=== PATIENT | male | born 1975 | race Hispanic/Latino ===

== ENCOUNTER 2023-06-25 12:07 | Emergency (ER) | payer SELFPAY ==
[2023-06-25 12:17] VITALS: BP 114/78
--- NOTE | 2023-06-25 13:09 | ED.GENMED ---
History of Present Illness
General
Chief Complaint: Eye Problems
Source: patient
Time Seen by Provider: 06/25/23 13:02
Travel History
Have you had any contact with someone who has COVID-19?: No
Do you have any symptoms of coronavirus? Fever > 100 degrees, chills, cough, shortness of breath, sore throat, loss of taste or smell, muscle aches, or headache?: No
History of Present Illness
History of Present Illness:
47-year-old male with no significant past medical history presenting to the emergency department for evaluation of right upper eyelid swelling and erythema that began on Sunday, noticed increased discomfort today prompting him to come to the ER.
He states he did apply a cool compress to the area yesterday but did not have any relief. Denies any drainage from the affected area, no visual changes, does not use glasses or contact lenses. Denies any history of similar.
Past History
Past History
ED Past Medical History: None
ED Past Surgical History: None
Social History
Tobacco: Non-smoker
Alcohol: None
Drug: None
Personal:
Living: with family
Review of Systems
Review of Systems
All Other Systems: ROS reviewed and negative except as documented in HPI and ROS
Phy Exam
Physical Exam
Physical Exam:
GENERAL: Alert , in no apparent distress
EYE: conjunctiva clear, internal stye to the right upper eyelid with surrounding erythema and edema. There is no periorbital erythema or edema. Extraocular movements are intact and without pain. No discharge
Head: Normocephalic atraumatic
NECK: Supple,
ENT: mmm.
LUNGS: no acute respiratory distress
NEUROLOGICAL: Alert and oriented
SKIN: Warm and dry, skin intact.
MUSCULOSKELETAL: well perfused.
PSYCH: Normal and appropriate interaction.
Scores
Heart Failure Risk
Heart Failure Risk Score: Not Applicable
Heart Score for Chest Pain Patients
STEMI patient?: Not applicable
Withdrawal Assessment of Alcohol
Withdrawal Assessment Completed?: Not applicable
Course
Vital Signs
Initial and Last Documented VS:
Initial Vital Signs
Temp Pulse Resp BP Pulse Ox
98.4 F 61 16 114/78 98
06/25/23 12:17 06/25/23 12:17 06/25/23 12:17 06/25/23 12:17 06/25/23 12:17
Last Documented Vital Signs
Temp Pulse Resp BP Pulse Ox
98.4 F 61 16 114/78 98
06/25/23 12:17 06/25/23 12:17 06/25/23 12:17 06/25/23 12:17 06/25/23 12:17
MDM/Problems Addressed
Differential Diagnosis Includes:
Stye, Chalazion, conjunctivitis, no concern for foreign body or corneal abrasion
MDM/Problems Addressed:
47-year-old male presenting the emergency department for evaluation of right upper eyelid swelling and erythema for 2 days. Exam seems to be most consistent with a internal right upper lid stye. Discussed with patient treatment for this including
warm compresses. Patient would like an antibiotic despite education stating antibiotics have not been shown to be helpful in treatment of styes. Provided him with information for ophthalmology but if symptoms or not to improve he can follow-up as
he may require procedure to remove stye. Stable for discharge home.
*Pulse Oximetry
Patient hypoxic: no
*Critical Care Note
Total Time (30-74mins, 75-104mins- exclusive of procedures): Not Applicable
ED Attending Note
-
Portions of this chart may have been created with voice recognition software.� Occasional wrong word or��sound alike� substitutions may have occurred due to the inherent limitations of voice recognition software.
Discharge Plan
Departure
Patient Disposition: Home (Routine Discharge)
Date of Disposition: 06/25/23
Time of Disposition: 13:09
Patient with high blood pressure during this ER visit?: No
Discharge Problem:
Hordeolum internum of right upper eyelid
Instructions: Douglas (DC)
Prescriptions:
New
erythromycin 5 mg/gram (0.5 %) ointment
0.5 inch ophthalmic (eye) BID Qty: 3.5 0RF
Referrals:
Vick Hernandez MD [Active] - (Ophthalmology)
Interventions
Interventions:
*ED COVID-19 Vaccine History Last Done: 06/25/23 12:17
Discharge Date and Time
Print Language: ECUADOREAN
== END 2023-06-25 13:34 | disposition home or self-care (01) ==
LOC: EMR 12:07
PROVIDERS: EMERGENCY PHYSICIAN Emergency Medicine
DX: H00.021 Hordeolum internum right upper eyelid (principal)
CPT/HCPCS: 99283

== ENCOUNTER 2023-07-14 15:33 | Emergency (ER) | payer SELFPAY ==
[2023-07-14 15:38] VITALS: BP 120/76
--- NOTE | 2023-07-14 17:20 | ED.GENMED ---
History of Present Illness
<JARED Benitez - Last Filed: 07/15/23 00:06>
General
Chief Complaint: Abdominal Symptoms
Source: patient
Exam Limitations: none
Time Seen by Provider: 07/14/23 17:08
Nursing documentation reviewed up to this point in time: agreed with
Travel History
Have you had any contact with someone who has COVID-19?: No
Do you have any symptoms of coronavirus? Fever > 100 degrees, chills, cough, shortness of breath, sore throat, loss of taste or smell, muscle aches, or headache?: No
History of Present Illness
History of Present Illness:
This is a 48 year old male with no significant PMHx who presents to the ER for abdominal pain and NVD x1 day. Patient reports last night around 9pm he had an sudden onset of watery diarrhea followed shortly by headache and chills and an episode of
vomiting. He gradually developed RUQ abdominal pain a few hours after his initial symptoms. He reports abdominal pain radiates to the epigastric region. He describes the abdominal pain as intermittent dull and crampy. His pain is relieved after
vomiting. He reports having 5-6 episodes of diarrhea and 3-4 episodes of bilious vomiting. He denies fever, CP, SOB, blood in his stool or emesis, or worse headache of his life. He admits eating turkey and eggplant last night around 4:00pm, which is
not a typical dinner for him. He reports his symptoms are now resolved. He denies regular use of NSAIDs or recent antibiotics use. He was born in [place] and has never been tested for H. Pylori. Denies any recent travel. Denies any abdominal
surgeries. He denies smoking tobacco, drinking alcohol, or any illicit drugs.
Past History
<JARED Benitez - Last Filed: 07/15/23 00:06>
Past History
ED Past Medical History: None
ED Past Surgical History: None
Social History
Tobacco: Non-smoker
Alcohol: None
Drug: None
Personal:
Living: with family
Review of Systems
<JARED Benitez - Last Filed: 07/15/23 00:06>
Review of Systems
Allergies reviewed?: Yes
All Other Systems: Not applicable
Constitutional: Reports chills
EENT: Reports no symptoms
Respiratory: Reports no symptoms
Cardiac: Reports no symptoms
ABD/GI: Reports abdominal pain, nausea, vomiting and diarrhea
: Reports no symptoms
Musculoskeletal: Reports no symptoms
Skin: Reports no symptoms
Neurological: Reports headache
Endocrine: Reports no symptoms
Hematologic/Lymphatic: Reports no symptoms
Psychiatric: Reports no symptoms
Phy Exam
<JARED Benitez - Last Filed: 07/15/23 00:06>
General Physical Exam
General Presentation: well appearing and no apparent distress
General Skin: warm and dry
General Habitus: normal
General Mental: alert
General Hydration: appears well hydrated
ENT Exam
ENT Exam: EOMI, pharynx normal, neck supple and normocephalic
Eye Exam
Eye Exam: PERRL, cornea clear and conjunctiva normal
Cardiovascular Exam
Cardiovascular Exam: regular rate/rhythm, no edema, no murmur and normal peripheral pulses
Pulmonary Exam
Pulmonary Exam: lungs clear, no respiratory distress, no rales, no crackles, no rhonchi, no stridor, no wheezing and no cough
Gastrointestinal Exam
Gastrointestinal Exam: normal bowel sounds, non tender, soft, no organomegaly, no pulsatile mass and non distended
Neurological Exam
Neurological Exam: alert, oriented x3, no motor deficits and speech normal
Musculoskeletal Exam
Musculoskeletal Exam: full ROM and no edema
Skin Exam
Skin Exam: normal color, warm/dry, no rash and no petechia
Psychiatric Exam
Psychiatric Exam: normal mood/affect
Course
<JARED Benitez - Last Filed: 07/15/23 00:06>
Orders/Labs/Results
Orders:
Orders
07/14/23 18:18
Complete Blood Count/With Diff Urgent
Comprehensive Metabolic Panel Urgent
Lipase Urgent
PTT Urgent
Prothrombin Time Urgent
Urinalysis Reflex To Culture Urgent
Date Specimen was Collected: 07/14/23
Time Specimen was Collected: 18:16
Urine Microscopic Reflex Cult Urgent
07/14/23 19:57
0.9% Sodium Chloride 1000 ml [Nss] 1,000 ml IV BOLUS
Ondansetron Injectable [Zofran] 4 mg IV NOW STA
07/14/23 19:58
US Abdomen Complete/Upper Urgent
Comment:
Reason For Exam: upper abd pain, nausea and vomiting
Abnormal Lab Results
07/14/23
18:18
Absolute Neuts (auto) 7.2 H 10^3/uL
(1.4-6.5)
Absolute Lymphs (auto) 0.5 L 10^3/uL
(1.2-3.4)
Absolute Monos (auto) 0.7 H 10^3/uL
(0.1-0.6)
Neutrophils % 86.0 H %
(42.2-75.2)
Lymphocytes % 5.3 L %
(20.5-51.1)
Sodium 133 L mmol/L
(135-145)
Carbon Dioxide 20 L mmol/L
(22-30)
Glucose 111 H mg/dl
(70-99)
Lipase 362 H U/L
(23-300)
Urine Ketones Trace A
(Negative)
Ur Occult Blood Reflex 1+ A
(Negative)
07/14/23 18:18
07/14/23 18:18
Vital Signs
Initial and Last Documented VS:
Initial Vital Signs
Temp Pulse Resp BP Pulse Ox
98.8 F 83 20 120/76 97
07/14/23 15:38 07/14/23 15:38 07/14/23 15:38 07/14/23 15:38 07/14/23 15:38
Last Documented Vital Signs
Temp Pulse Resp BP Pulse Ox
98.8 F 80 16 97/60 95
07/14/23 15:38 07/14/23 22:39 07/14/23 22:39 07/14/23 22:35 07/14/23 22:35
<Pedro Crespo, DO - Last Filed: 07/15/23 00:05>
Orders/Labs/Results
Orders:
Orders
07/14/23 18:18
Complete Blood Count/With Diff Urgent
Comprehensive Metabolic Panel Urgent
Lipase Urgent
PTT Urgent
Prothrombin Time Urgent
Urinalysis Reflex To Culture Urgent
Date Specimen was Collected: 07/14/23
Time Specimen was Collected: 18:16
Urine Microscopic Reflex Cult Urgent
07/14/23 19:57
0.9% Sodium Chloride 1000 ml [Nss] 1,000 ml IV BOLUS
Ondansetron Injectable [Zofran] 4 mg IV NOW STA
07/14/23 19:58
US Abdomen Complete/Upper Urgent
Comment:
Reason For Exam: upper abd pain, nausea and vomiting
Abnormal Lab Results
07/14/23
18:18
Absolute Neuts (auto) 7.2 H 10^3/uL
(1.4-6.5)
Absolute Lymphs (auto) 0.5 L 10^3/uL
(1.2-3.4)
Absolute Monos (auto) 0.7 H 10^3/uL
(0.1-0.6)
Neutrophils % 86.0 H %
(42.2-75.2)
Lymphocytes % 5.3 L %
(20.5-51.1)
Sodium 133 L mmol/L
(135-145)
Carbon Dioxide 20 L mmol/L
(22-30)
Glucose 111 H mg/dl
(70-99)
Lipase 362 H U/L
(23-300)
Urine Ketones Trace A
(Negative)
Ur Occult Blood Reflex 1+ A
(Negative)
07/14/23 18:18
07/14/23 18:18
Vital Signs
Initial and Last Documented VS:
Initial Vital Signs
Temp Pulse Resp BP Pulse Ox
98.8 F 83 20 120/76 97
07/14/23 15:38 07/14/23 15:38 07/14/23 15:38 07/14/23 15:38 07/14/23 15:38
Last Documented Vital Signs
Temp Pulse Resp BP Pulse Ox
98.8 F 80 16 97/60 95
07/14/23 15:38 07/14/23 22:39 07/14/23 22:39 07/14/23 22:35 07/14/23 22:35
<JARED Benitez - Last Filed: 07/15/23 00:06>
MDM/Problems Addressed
Differential Diagnosis Includes:
Gastroenteritis, Gastritis, Peptic ulcer disease, Pancreatitis, Cholecystitis, Appendicitis.
Cholecystitis and appendicitis considered d/t righted sided abd pain radiating to the epigastric. However, patient does not have a fever. He also denies a history of gallstones and drinking alcohol making cholecystitis less likely. Peptic ulcer
disease considered with patient's history of being born in [place]. However less likely due to additional symptoms of diarrhea, headaches and chills. Pancreatitis considered due to elevated lipase. Gastroenteritis and gastritis considered due to
patient presentation and related symptoms that have now resolved after episodes of diarrhea and vomiting.
<JARED Benitez - Last Filed: 07/15/23 00:06>
*Critical Care Note
Total Time (30-74mins, 75-104mins- exclusive of procedures): Not Applicable
<Pedro Crespo DO - Last Filed: 07/15/23 00:05>
Update Note
Update Note:
ABDOMINAL US
IMPRESSION:
A few likely gallbladder polyps noted. Stones nor no gallbladder wall thickening. Negative sonographic Weaver sign.
Pancreas not well evaluated. Liver, spleen, and kidneys are within normal limits.
07/15/2023 0001 AM: Patient states that he is feeling much better. He has no abdominal pain at this time. He wishes to be discharged home.
ED Attending Note
<JARED Benitez - Last Filed: 07/15/23 00:06>
-
Portions of this chart may have been created with voice recognition software.� Occasional wrong word or��sound alike� substitutions may have occurred due to the inherent limitations of voice recognition software.
<Pedro Crespo DO - Last Filed: 07/15/23 00:05>
ED Attending Note
Patient seen and examined by attending physician: Yes
I performed the substantive portion of visit, reviewed & personally made and approve the management plan that is documented in note by myself or LETTY.: Yes
ED Attending Note:
Pleasant 48-year-old male presents with upper abdominal pain with nausea, vomiting, and nonbloody diarrhea. Patient states that the symptoms began last night. He also reported headache and chills. patient states that his abdominal pain is
alleviated with vomiting. Patient reports having 5-6 episodes of diarrhea 3-4 episodes of bilious vomiting in the last 24 hours. Denies chest pain or shortness of breath. Denies previous abdominal surgeries. Denies alcohol use. Reports no other
symptoms. Patient was seen in conjunction with the PA student. I have reviewed and agree with the history and treatment plan presented. On my independent physical exam, patient is awake, alert, and oriented x3, minimal acute distress. Abdomen is
soft and nontender. No hepatosplenomegaly. Good bowel sounds heard.
Discharge Plan
Departure
Patient Disposition: Home (Routine Discharge)
Date of Disposition: 07/15/23
Time of Disposition: 00:02
Patient with high blood pressure during this ER visit?: No
Condition: Good
Discharge Problem:
Nausea vomiting and diarrhea
Instructions: Diarrhea in adolescents and adults, Nausea and Vomiting, Adult (DC)
Prescriptions:
New
ondansetron HCl 4 mg tablet
4 mg PO TID PRN (Reason: nausea and vomiting) Qty: 10 0RF
No Action
erythromycin 5 mg/gram (0.5 %) ointment
0.5 inch ophthalmic (eye) BID Qty: 3.5 0RF
Referrals:
[facility] [Outside]
[facility] [Outside]
Regino Rader MD [Family Provider] -
Activity Restrictions/Additional Instructions:
It was a pleasure meeting you and taking part in your care. We hope for your continued healing and wellness.
Please read discharge instructions in their entirety. However, they are for general education and may not describe your exact diagnosis at discharge. Information on your ER visit and medical conditions were discussed with you along with appropriate
follow up information...
If indicated, please take your medications as instructed and indicated on discharge paperwork.
Please schedule a follow up appointment as directed. Call to schedule an appointment
Please return to the emergency department with ANY change in, persisting, or worsening of symptoms. If any of your symptoms do not improve, or persist, or become more severe within 6-12 hours, please return to the emergency department for further
care.
Please return to the emergency department if you develop a headache, neck pain/stiffness, fever greater than 100.4F, chest pain, shortness of breath, persistent nausea, vomiting, slurred speech, difficulty walking, numbness/tingling, weakness, signs
of infection or any other symptoms that are worrisome to you.
If you have any questions or concerns please do not hesitate to call the Hospital at or E-mail me directly at [email or web address]
Interventions
Interventions:
*Risk Screen - Suicide Last Done: 07/14/23 18:21
*General Assessment Last Done: 07/14/23 18:21
*Neglect/Abuse Screening Last Done: 07/14/23 18:21
*ED COVID-19 Vaccine History Last Done: 07/14/23 18:21
[id number] Assessment Last Done: 07/14/23 18:17
Discharge Date and Time
Print Language: SAMI
[2023-07-14 18:28] LABS: % Basophils 0.2 % (0-2); % Eosinophils 0.1 % (0-6); % Immature Granulocytes 0.5 % (0-0.5); % Lymphocytes 5.3 % (20.5-51.1); % Monocytes 7.9 % (1.7-9.3); Absolute Lymphocytes 0.5 10^3/uL (1.2-3.4); Absolute Monocytes 0.7 10^3/uL (0.1-0.6); Absolute Neutrophils 7.2 10^3/uL (1.4-6.5); Hematocrit 46.6 % (39.0-52.0); Hemoglobin 16.5 g/dL (13.0-18.0); Mean Corp Hgb Conc. 35.4 g/dL (33.0-37.0); Mean Corpuscular Hgb 30.7 pg (27.0-31.0); Mean Corpuscular Volume 86.6 fL (80.0-94.0); Mean Platelet Volume 9.1 fL (7.4-10.4); Nucleated Red Blood Cells % 0 % (-); Platelet Count 260 10^3/uL (130-400); Red Blood Cell Count 5.38 10^6/uL (4.70-6.10); Red Cell Dist. Width 13.4 % (11.5-14.5); White Blood Cell Count 8.4 10^3/uL (4.8-10.8)
[2023-07-14 18:37] LABS: APTT 29.2 Sec (23.4-35.0); INR 1.04; PT 13.4 Sec (11.4-14.6)
[2023-07-14 18:47] LABS: ALT (SGPT) 48 U/L (0-50); AST (SGOT) 33 U/L (17-59); Albumin 4.6 g/dl (3.5-5.0); Alkaline Phosphatase 94 U/L (38-126); Blood Urea Nitrogen 18 mg/dl (9-20); Calcium 9.1 mg/dl (8.4-10.2); Carbon Dioxide 20 mmol/L (22-30); Chloride 105 mmol/L (98-107); Glucose 111 mg/dl (70-99); Lipase 362 U/L (23-300); Potassium 4.2 mmol/L (3.5-5.1); Sodium 133 mmol/L (135-145); Total Bilirubin 0.6 mg/dl (0.2-1.3); Total Protein 7.5 g/dl (6.3-8.2); eGFR > 60.00
[2023-07-14 18:54] LABS: Urine Albumin Trace (Neg - Trace); Urine Bilirubin Negative (Negative); Urine Character Clear (Clear); Urine Color Yellow; Urine Glucose Negative (Negative); Urine Ketone Trace (Negative); Urine Leukocyte Negative (Negative); Urine Nitrite Negative (Negative); Urine Occult Blood 1+ (Negative); Urine Specific Gravity 1.025 (<1.030); Urine Urobilinogen Negative (Neg - 1+)
[2023-07-14 19:09] LABS: Urine Red Blood Cell 0-2 /HPF (0-2); Urine White Cell 0-2 /HPF (0-5)
[2023-07-14] MEDS: ZOFRAN 4 MG IV (20:08)
[2023-07-14] MEDS: NSS 1000 IV (20:08)
[2023-07-14 22:35] VITALS: BP 97/60
[2023-07-14 23:00] VITALS: BP 101/67
[2023-07-15] VITALS: BP 111/72
== END 2023-07-15 00:34 | disposition home or self-care (01) ==
LOC: EMR 15:33
PROVIDERS: EMERGENCY PHYSICIAN Student in an Organized Health Care Education/Training Program; FAMILY PHYSICIAN Pediatrics
DX: R11.2 Nausea with vomiting, unspecified (principal); R19.7 Diarrhea, unspecified; R10.10 Upper abdominal pain, unspecified; R51.9 Headache, unspecified; K82.4 Cholesterolosis of gallbladder
CPT/HCPCS: 99284; 96374; 96361; 76700; 80053; 81003; 81015; 83690; 85025; 85610; 85730

== ENCOUNTER → 2023-08-23 14:24 | Outpatient (REF) | payer OTHER, SELFPAY ==
[2023-08-23 16:14] LABS: HDL Cholesterol 60 mg/dl; LDL Cholesterol, Calculated 137 mg/dl; Total Cholesterol 222 mg/dl (50-199); Triglyceride 129 mg/dl (10-149); Very Low Density Lipoprotein 25 mg/dl (0-30)
[2023-08-23 16:32] LABS: Amylase 99 U/L (30-110); Lipase 122 U/L (23-300)
[2023-08-23 16:45] LABS: PSA, Total - Screen 1.27 ng/ml (0.0-4.0)
[2023-08-24 09:11] LABS: Glycohemoglobin (HgbA1c) 5.9 % (4.0-5.6)
== END ==
LOC: CLINIC 14:24
PROVIDERS: ATTENDING PHYSICIAN Internal Medicine
DX: K85.01 Idiopathic acute pancreatitis with uninfected necrosis (principal); Z13.1 Encounter for screening for diabetes mellitus; Z12.5 Encounter for screening for malignant neoplasm of prostate; Z12.11 Encounter for screening for malignant neoplasm of colon
CPT/HCPCS: 36415; 80061; 82150; 83036; 83690; G0103

== ENCOUNTER → 2023-08-25 08:04 | Outpatient (REF) | payer OTHER, SELFPAY ==
[2023-08-27 00:18] LABS: H. pylori Antigen, Fecal Negative (Negative)
[2023-08-27 21:45] LABS: FIT-Fecal Occult Blood Interp Negative
== END ==
LOC: REG 08:04
PROVIDERS: ATTENDING PHYSICIAN Internal Medicine
DX: Z12.11 Encounter for screening for malignant neoplasm of colon (principal)
CPT/HCPCS: 36415; 83520; 87338